=== PATIENT | female | born 1985 | race African-American/Black ===

== ENCOUNTER 2018-06-19 09:09 | Outpatient (CLI) | payer OTHER ==
[~2018-06-19 09:09] MED LIST: ADVAIR HFA 115-12 GM IH; ALBUTEROL2.5 MG/3 M HHN; AMBIEN10 MG PO; AMBIEN5 MG PO; CIPRO500 MG PO; COMBIVENT2 PUFFS INH; COREG12.5 MG PO; COREG3.125 MG ORAL; COZAAR25 MG ORAL; COZAAR25 MG PO; DILAUDID4 MG PO; EXJADE500 MG PO; FERRIPROX; FERRIPROX PO; FLUCONAZOLE200 MG; FOLIC ACID0.4 MG ORAL; FOLIC ACID0.8 MG PO; HYDROMORPHONE HC4 M1; LEVOFLOXACIN500 MG; LORAZEPAM1 MG ORAL; LOSARTAN POTASS25 M1; MACROBID100 MG; MULTI VITA-BE0.25 MG PO; MYCOSTATIN100000 UNI; NITROFURANTOIN50 MG; NORCO 10-325 T1 EACH PO; OXYCONTIN20 MG PO; PHENAZOPYRIDIN200 MG ORAL; VITAMIN D1000 UNI1 ORAL; VITAMIN D1000 UNI1 PO; ZOLPIDEM TARTRA10 MG PO; albuterol INH
--- NOTE | 2018-06-19 10:06 | Diagnostic Imaging Report ---
Indication: Cough Comparison: None 2 views of the chest obtained. Findings: There is a small patch of a parenchymal opacity at the left lung base which may be infiltrate or atelectasis. Correlate clinically. Cardiac silhouette is normal. Lung volumes are low. There is a left chest port present in good position. The tip is projected over the SVC. The bones are mildly osteopenic. Surgical clips noted in the upper abdomen. IMPRESSION: Small focus of pneumonia versus atelectasis left lung base. Findings discussed via telephone with Dr. Lao.
== END 2018-06-19 11:09 | disposition home or self-care (01) ==
LOC: RAD 09:09
DX: R05 Cough (principal); D57.1 Sickle-cell disease without crisis
CPT/HCPCS: 71046

== ENCOUNTER 2019-05-08 08:30 | Outpatient (CLI) | payer MEDICARE, OTHER ==
--- NOTE | 2019-05-08 12:08 | Diagnostic Imaging Report ---
Indication: Back pain Comparison: None Findings: 5 views of the lumbar spine were obtained. The bones are osteopenic. There is no fracture seen. Generalized narrowing of intervertebral discs demonstrated. Mild endplate spurs noted multiple levels. Some sclerosis of the facets noted. Bilateral total hip prostheses noted. Alignment is normal. There is a moderate amount of feces within the colon. Cholecystectomy clips noted. IMPRESSION: Some degenerative changes of the lumbar spine noted. Generalized osteopenia. Bilateral hip prostheses. Moderate stool
--- NOTE | 2019-05-08 12:20 | Diagnostic Imaging Report ---
Indication: Back pain Comparison: None Findings: 2 views of the thoracic spine were obtained. No definite fracture seen. Bones are osteopenic. There is mild generalized ossified of several vertebra. Soft tissues are unremarkable. IMPRESSION: No acute injury appreciated
--- NOTE | 2019-05-08 12:27 | Diagnostic Imaging Report ---
Indication: Neck Pain Findings: 5 views of the cervical spine were obtained. Bones are osteopenic. There is some narrowing of the C2-3 disc. Alignment is normal. There is no fracture. Neural foramina appear widely patent bilaterally. IMPRESSION: No acute findings
== END 2019-05-08 10:30 | disposition home or self-care (01) ==
LOC: RAD 08:30
DX: M54.2 Cervicalgia (principal); M85.88 Other specified disorders of bone density and structure, other site; M54.9 Dorsalgia, unspecified; Z96.643 Presence of artificial hip joint, bilateral; Z90.49 Acquired absence of other specified parts of digestive tract
CPT/HCPCS: 72050; 72070; 72110

== ENCOUNTER → 2019-06-25 | Outpatient (CLI) | payer MEDICARE, OTHER ==
--- NOTE | 2019-06-25 15:42 | Diagnostic Imaging Report ---
Indication: Cough Technique: One view of the chest Comparison: 07/02/2018 Findings: Lungs and pleural spaces are clear. The heart size is normal. There is a left chest port catheter. No significant interim change Impression: No acute process
== END | disposition home or self-care (01) ==
LOC: RAD 13:14
DX: R05 Cough (principal)
CPT/HCPCS: 71046